=== PATIENT | female | born 1990 | race Caucasian/White ===

== ENCOUNTER 2020-07-23 11:14 | Inpatient (IN) ==
[2020-07-23] MEDS ORDERED: PENICILLIN G POTASSIUM 3 MU in DEXTROSE 5% 100 ML IV PRN (11:30)
[2020-07-23] MEDS ORDERED: OXYTOCIN 30 UNITS/500 ML BAG IV PRN ×2 (11:30→17:47)
[2020-07-23] MEDS ORDERED: PENICILLIN G POTASSIUM 6 MU in DEXTROSE 5% 250 ML IV STA (11:45)
[2020-07-23 11:58] LABS: Hematocrit (blood only) 37.2 % (37-47); Hemoglobin 12.9 g/dL (12.0-16.0); Mean Corpuscular Hemoglobin 32.3 pg (25-34); Mean Corpuscular Hgb Conc 34.7 g/dL (32-36); Mean Corpuscular Volume 93.2 fL (80-100); Mean Platelet Volume 10.3 fL (7.4-10.4); Platelet Count 430 K/uL (130-400); RDW Coefficient of Variation 12.7 % (11.5-14.5); RDW Standard Deviation 42.8 fL (36.4-46.3); Red Blood Count 3.99 M/uL (4.2-5.4); White Blood Count 20.17 K/uL (4.8-10.8)
[2020-07-23] MEDS: LACTATED RINGER'S 1,000 ML IV PRN ×2 (12:01→13:31)
[2020-07-23] MEDS ORDERED: ePHEDrine sulfate 50 MG/ML AMP ONE (12:07)
[2020-07-23] MEDS ORDERED: BUPIVACAINE 0.25% 30 ML VIAL ONE (12:07)
[2020-07-23] MEDS ORDERED: SODIUM CHLORIDE 0.9% INJ 10 ML VIAL ONE (12:07)
[2020-07-23] MEDS ORDERED: fentaNYL citrate 100 MCG/2 ML VIAL ONE (12:08)
[2020-07-23] MEDS ORDERED: fentaNYL 2MCG/ML ROPIVACAINE 1.25MG/ML 100 ML BAG EPI ONE (12:08)
--- NOTE | 2020-07-23 12:09 | History & Physical Report ---
Date of Service July 23, 2020 Assessment & Plan (1) Normal labor: Admission and Anticipated Discharge Date Admission Date: July 23, 2020 IUP at 40 weeks in active labor start PCN G prophylaxis now AROM when 2nd dose started epidural when requested anticipate vaginal . History of Present Illness Primary Care Provider: Natalie Aden PA-C Patient is a 30 yo white female who presents at 40+ weeks in active labor. (-) SPROM (-) bloody show. GBS(+) blood type O negative. Allergies Allergy/AdvReac Type Severity Reaction Status Date / Time lithium Allergy Mild dazed, Verified 07/22/20 11:08 confusion haloperidol Allergy unknown Verified 07/22/20 11:08 sertraline Allergy unknown Verified 07/22/20 11:08 tramadol Allergy unknown Verified 07/22/20 11:08 Home Medications Medication Instructions Recorded Confirmed Type prenat.vits,fiordaliza,[id number] 1 tab PO DAILY 12/04/19 07/22/20 History folic acid 1 mg tablet 4 mg PO DAILY #90 tab 12/12/19 07/22/20 Rx vitamin B complex PO 01/08/20 07/22/20 History levetiracetam 500 mg tablet 500 mg PO BID #180 tab 06/25/20 07/22/20 Rx Patient History Medical History (Updated 07/23/20 @ 12:11 by Jerrica Silva MD, FACOG) Hx of varicella Normal vaginal delivery Paranoid schizophrenia (Unknown) Suicide attempt (Unknown) Surgical History Tonsillectomy planned Social History Smoking Status: Current every day smoker packs per day: 0.5; Years Smoked: 12; Cigarettes Per Day: .5 PACK; Hx Alcohol Use: Yes Hx Substance Use: No Preferred Language: [place] Rican Communication Ability: Effective Beliefs That Will Affect Care: None marital status: marital status details: BERTIN Lott 29 Current Living Situation: Spouse Current Living Situation Comment: lives with FOB and children, 1 dog, 2 cats, does not change litter current occupational status: employed 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 @ [employer] Other Information That Helps Us Care for You: No Feels Safe at Home: Yes Safety Concerns: Feels Safe At This Time Assistive Devices: None Review of Systems All systems reviewed & are unremarkable except as noted in HPI & below Physical Exam Constitutional: WD/WN, vitals as above Respiratory: normal respiratory effort, lungs clear to auscultation Cardiovascular: RRR, no murmur, no edema Gastrointestinal (Abdomen): normal bowel sounds, soft, nontender, no hepatosplenomegaly Psychiatric: A+Ox3, euthymic affect Genitourinary: OB Exam Abdomen: + vertex, + estimated weight (7-8 pounds) and + regular contractions Manual OB Exam: + cervical dilation 5 cm, + cervical effacement 90% and + station -2 OB Exam Monitor Tracing: + external FHT monitor used, + external uterine monitor used, + category I and + normal FHT variability Results & Data ([facility]) Vital Signs (Past 12 Hours) Vital Signs Temp Pulse Resp BP 07/23/20 11:43 97.7 F 20 07/23/20 11:25 96 H 138/86 Coding Level of Care Code None Diagnoses Normal labor O80; Z37.9
[2020-07-23] MEDS ORDERED: NALOXONE HCL 1 MG in SODIUM CHLORIDE 0.9% 1000ML 1,000 ML IV PRN (12:32)
[2020-07-23] MEDS ORDERED: ONDANSETRON INJ 2 MG/ML 2 ML VIAL IV PRN (12:32)
[2020-07-23] MEDS ORDERED: fentaNYL 2MCG/ML ROPIVACAINE 1.25MG/ML 100 ML BAG EPI PRN (12:32)
[2020-07-23] MEDS ORDERED: diphenhydrAMINE 50 MG/ML VIAL IV PRN (12:32)
[2020-07-23] MEDS ORDERED: ePHEDrine sulfate 50 MG/ML AMP IV PRN (12:32)
[2020-07-23] MEDS ORDERED: NALOXONE HCL 0.4 MG/1 ML VIAL/CARP IV PRN (12:32)
--- NOTE | 2020-07-23 12:35 | Anesthesiology Consultation ---
Date of Service July 23, 2020 Assessment & Plan (1) Encounter for pre-operative examination: Chart Review Chart Review: Patient NOT seen in Pre Admission Testing and Acceptable Risk for Labor Epidural Consults Requested none History Height/Weight Height: 5 ft 7 in Weight: 83.461 kg Allergies Allergy/AdvReac Type Severity Reaction Status Date / Time lithium Allergy Mild dazed, Verified 07/22/20 11:08 confusion haloperidol Allergy unknown Verified 07/22/20 11:08 sertraline Allergy unknown Verified 07/22/20 11:08 tramadol Allergy unknown Verified 07/22/20 11:08 Medications Home Medications Medication Instructions Recorded Confirmed Last Taken prenat.vits,fiordaliza,rhq-egra-eyhza 1 tab PO DAILY 12/04/19 07/22/20 Unknown folic acid 1 mg tablet 4 mg PO DAILY #90 tab 12/12/19 07/22/20 Unknown vitamin B complex PO 01/08/20 07/22/20 Unknown levetiracetam 500 mg tablet 500 mg PO BID #180 tab 06/25/20 07/22/20 Unknown prenat.vits,fiordaliza,[id number]-[id number] 1 tab PO DAILY 07/23/20 07/23/20 07/21/20 08:00 [ Vitamin] Active Medications Generic Name Dose Route Start Last Admin Trade Name Freq PRN Reason Stop Dose Admin Lactated Ringer's 1,000 mls @ 125 mls/hr 07/23/20 11:30 07/23/20 12:01 Lr IV 07/25/20 11:29 999 mls/hr .Q8H PRN Administration L&D Protocol Protocol Past Medical History Medical History (Updated 07/23/20 @ 12:35 by Vj Denton MD) Hx of varicella Normal vaginal delivery Paranoid schizophrenia (Unknown) Suicide attempt (Unknown) Exercise / Class Metabolic Activity II 4-5 Yardwork/Stairs/Walk up hill Past Surgical History Surgical History Tonsillectomy planned Past Anesthesia History No Hx of Anesthesia Complications and No Family Hx of Anesthesia Complications History of PONV No Hx of PONV and No Hx of Motion Sickness Social History Smoking Status: Current every day smoker tobacco type: cigarettes Smoking cigarettes per day: .5 PACK Do You Dip or Chew Tobacco: No Hx Alcohol Use: Yes Hx Substance Use: No substance use type: does not use Physical Exam Vital Signs Last Vital Signs Temp 36.5 C 07/23/20 11:43 Pulse 86 07/23/20 12:56 Resp 20 07/23/20 11:43 BP 118/69 07/23/20 12:56 Pulse Ox 99 07/23/20 12:52 Testing Laboratory Results 07/23/20 11:42
[2020-07-23] MEDS ORDERED: SILVER NITR/POTASSIUM NITRATE APPLICATOR ONE ×2 (17:35→17:38)
[2020-07-23] MEDS ORDERED: bisacodyL 10 MG SUPP PR PRN (17:47)
[2020-07-23] MEDS ORDERED: BENZOCAINE 20% AER SPR 82.5 GM CAN EXT PRN (17:47)
[2020-07-23] MEDS ORDERED: DIPHTHERIA/TETANUS/PERTUSSIS 0.5 ML SYR/VIAL IM ONE (17:47)
[2020-07-23] MEDS ORDERED: ACETAMINOPHEN 325 MG TAB PO PRN (17:47)
[2020-07-23] MEDS ORDERED: HYDROCORTISONE ACETATE 25 MG SUPP PR PRN (17:47)
[2020-07-23] MEDS ORDERED: SUPERCREAM 0.870% 15 GM JAR EXT PRN (17:47)
[2020-07-23] MEDS ORDERED: oxyCODONE/ACETAMINOPHEN 5mg/325mg TAB PO PRN (17:47)
--- NOTE | 2020-07-23 18:01 | Delivery Summary ---
Vaginal Delivery Summary Date of Service July 23, 2020 Patient is a 30-year-old 3 para 2000 white female who presents at 40 weeks with an active labor. She was 5 cm upon arrival in labor and delivery membranes were intact. She received effective epidural analgesia. She received 2 doses of penicillin G for GBS prophylaxis. At this point she was fully dilated, and membranes were ruptured for small amount of clear fluid. She had the urge to push, and delivered a viable female infant over intact perineum. There was vigorous crying and the infant was moving all 4 limbs. After 1 minute the cord was clamped and cut. Gentle traction was placed on the cord to deliver the placenta, but the cord avulsed from the placenta. The placenta was in the cervix and was easily removed manually. The placenta was intact and the cord had a three-vessel cord. There were no perineal lacerations. There were 2 skin tags on the perineum that were removed with scissors. Bleeding at the excision sites was controlled with silver nitrate. Estimated blood loss was 200 cc. bleeding was controlled with dilute Pitocin. Mother and infant were doing well after delivery. Vaginal Delivery Summary [facility] Vaginal Delivery Charge Vaginal Delivery Codes: 48572 global code for the antepartum, delivery, and post- Delivery Type Details: [facility]
--- NOTE | 2020-07-23 18:15 | Anesthesia Procedure Note ---
Date of Service July 23, 2020 Anesthesia Post Epidural Note Vital Signs Vital Signs: Temp Pulse Resp BP Pulse Ox 36.6 C 76 20 112/70 96 07/23/20 15:15 07/23/20 18:00 07/23/20 16:30 07/23/20 18:00 07/23/20 17:42 Notes Mental Status: alert / awake / arousable and participated in evaluation Patient Amnestic to Procedure: Yes Nausea / Vomiting: adequately controlled Pain: adequately controlled Airway Patency, RR, SpO2: stable & adequate BP & HR: stable & adequate Hydration State: stable & adequate Anesthetic Complications: no major complications apparent and Pt Satisfied with anesthetic care Epidural: Removed without complications and With tip intact
[2020-07-23] MEDS: IBUPROFEN 600 MG TAB PO PRN (19:22)
[2020-07-23] MEDS: DOCUSATE SODIUM 100 MG CAP PO SCH (20:26)
[2020-07-23] MEDS: levETIRAcetam 500 MG TAB PO SCH (20:27)
[2020-07-24] MEDS: IBUPROFEN 600 MG TAB PO PRN ×2 (06:21→16:28)
[2020-07-24 06:38] LABS: Mean Corpuscular Hemoglobin 32.3 pg (25-34); Mean Corpuscular Hgb Conc 34.3 g/dL (32-36); Mean Corpuscular Volume 94.3 fL (80-100); Mean Platelet Volume 10.4 fL (7.4-10.4); Platelet Count 398 K/uL (130-400); RDW Coefficient of Variation 12.9 % (11.5-14.5); RDW Standard Deviation 44.3 fL (36.4-46.3); Red Blood Count 3.71 M/uL (4.2-5.4); White Blood Count 17.51 K/uL (4.8-10.8)
[2020-07-24] MEDS ORDERED: PRENATAL VITAMIN 1 TAB PO SCH (08:00)
--- NOTE | 2020-07-24 08:22 | Obstetrical Progress Note ---
Date of Service July 24, 2020 Assessment & Plan (1) Encounter for care and examination after delivery: satisfactory psotpartum course continue current care plan Subjective Ambulation: ambulating normally Voiding: no voiding problems Diet Tolerance:: regular diet Lochia:: Moderate Feeding Type:: breast feeding Review of Systems All systems reviewed & are unremarkable except as noted in HPI & below Physical Exam Constitutional WD/WN, vitals as above Psychiatric A+Ox3, euthymic affect Genitourinary OB Exam Abdomen: + fundal height Fundus: + firm and + relation to umbilicus (at U) Results & Data ([facility]) Vital Signs (Past 12 Hours) Vital Signs Temp Pulse Pulse Resp BP Pulse Ox 07/24/20 03:05 98.4 F 76 16 115/62 97 07/24/20 00:10 98.4 F 71 16 103/61 98 07/23/20 20:25 97.9 F 72 18 116/70 95
[2020-07-24] MEDS: DOCUSATE SODIUM 100 MG CAP PO SCH (08:41)
[2020-07-24] MEDS: levETIRAcetam 500 MG TAB PO SCH (08:41)
[2020-07-24] MEDS ORDERED: bisacodyL 5 MG TABEC PO SCH (20:00)
== END 2020-07-24 18:45 | disposition home or self-care (01) | DRG 807 ==
LOC: 4S1 11:14 → OPB 11:14 → 4S1 11:30 → 4S2 20:23

== ENCOUNTER 2022-06-15 08:44 | Inpatient (IN) ==
[2022-06-15] MEDS ORDERED: OXYTOCIN 30 UNITS/500 ML BAG IV PRN ×3 (12:52→22:48)
[2022-06-15] MEDS ORDERED: LIDOCAINE 1% LOCAL 20 ML VIAL INFIL PRN (12:52)
[2022-06-15] MEDS ORDERED: LACTATED RINGER'S 1,000 ML IV PRN (12:52)
[2022-06-15] MEDS ORDERED: PENICILLIN G POTASSIUM 6 MU in DEXTROSE 5% 250 ML IV STA (13:00)
--- NOTE | 2022-06-15 13:20 | History & Physical Report ---
Date of Service June 15, 2022 Assessment & Plan (1) Encounter for induction of labor: (2) Carrier of group B Streptococcus: (3) Need for rhogam due to Rh negative mother: Plan - Patient admitted to labor and delivery for initiation of medical induction of labor - Patient 4/60/-2 on 06/13/22, no Ness bulb placement - Patient currently 4/70/-[address] Nguyen on 06/15/22 - Patient is GBS+, will plan for 4 hours of PCN prior to delivery - Patient is Rh negative, will plan for Rhogam PP if baby is Rh positive - Patient w/o evidence of regular contractions, thus oxytocin augmentation of labor will be started per protocol - Once contractions are progressing, will consider ROM - Will anticipate epidural as contractions arise - Labs pending Admission and Anticipated Discharge Date Admission Date: June 15, 2022 History of Present Illness Chief Complaint: Induction Primary Care Provider: Gonzalo Ram DO Raquel is a 32 year old female currently at EGA 40 04/29 with DEVAN 06/14/22 by LMP who is presenting to L&D for induction of labor. Complications: Rh negative, GBS positive Reason for Induction/: Post-date Movement: Yes Fluid Loss/ROM: No Bloody show/discharge: No Contractions: Yes, irregular 20 - 30 minutes apart External FHT: Category 1, tracing reactive, good FHT variability (acels w/o dcels) Uterine Monitor: no regular contractions Last OB appointment: 06/13, regular care Labs: Blood Type: O- Antibody Screen: Negative Hg/Hct (today): Pending WBC/Plt (today): Pending Rubella: Immune RPR: Non-reactive Gonorrhea: Negative Chlamydia: Negative HIV: Negative HbSAg: Negative GBS: Positive ROS: - Denies fever, chills, sweats - Denies dyspnea or pleuritic pain - Denies chest pain, palpitations, or pressure - Denies breast pain - Denies dysuria - Denies headache or visual changes Allergies Allergy/AdvReac Type Severity Reaction Status Date / Time lithium Allergy Mild dazed, Verified 06/13/22 10:42 confusion haloperidol Allergy neck Verified 06/13/22 10:42 stiffness sertraline Allergy suicidal Verified 06/13/22 10:42 thoughts tramadol Allergy seizures Verified 06/13/22 10:42 Home Medications Medication Instructions Recorded Confirmed Type prenat.vits,fiordaliza,[id number]-[id number] 1 tab PO DAILY 10/28/21 06/15/22 History fluoxetine 10 mg capsule (Prozac) 10 mg PO DAILY 01/24/22 06/15/22 History Patient History Medical History Attention deficit hyperactivity disorder Bipolar disorder Depression with anxiety Drug overdose (~2010) GBS (group B Streptococcus carrier), +RV culture, currently Hx of varicella Normal vaginal delivery Paranoid schizophrenia (Unknown) Post depression Seizure disorder Suicide attempt (Unknown) Surgical History History of ear surgery Tonsillectomy planned Family History Grandmother (Maternal) Colorectal cancer Grandmother (Maternal) Breast cancer Grandfather (Paternal) Lung cancer Myocardial infarction Grandfather (Paternal) No problems noted. 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: No Beliefs That Will Affect Care: None marital status: marital status details: Kt Lott (31) [phone] Current Living Situation: Spouse and Family Current Living Situation Comment: lives with spouse and children, 1 dog, 2 cats-daughter changing litter current occupational status: employed 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 No acute distress. Cardiac: Regular rate and rhythm, no murmurs/rubs/gallops. Respiratory: Clear to auscultation bilaterally a/p, no wheezes/rales/rhonchi. No increased work of breathing. Symmetrical chest rise. No respiratory distress. Abdomen: Gravid; reactive FHTs; Position: Vertex by Nigel Maneuver Pelvic: 4/[address]/-[address] Nguyen Lower Extremities: No lower extremity edema or swelling. No deep calf pain. Fiordaliza's negative bilaterally. Resident Activity Tracking Resident Involvement: Resident Care Provided Care Provided: OB Delivery
[2022-06-15 13:40] LABS: Hematocrit (blood only) 32.6 % (37.0-47.0); Hemoglobin 11.1 g/dl (12.0-16.0); Mean Corpuscular Hemoglobin 29.3 pg (25.0-34.0); Mean Platelet Volume 10.1 fL (9.4-12.4); Platelet Count 513 K/uL (130-400); RDW Coefficient of Variation 13.4 % (11.5-14.5); Red Blood Count 3.79 M/uL (4.20-5.40); White Blood Count 14.94 K/ul (4.8-10.8)
[2022-06-15] MEDS ORDERED: PENICILLIN G POTASSIUM 3 MU in DEXTROSE 5% 100 ML IV PRN (15:52)
[2022-06-15] MEDS ORDERED: ePHEDrine sulfate 50 MG/ML AMP ONE (16:08)
[2022-06-15] MEDS ORDERED: SODIUM CHLORIDE 0.9% INJ 10 ML VIAL ONE (16:08)
[2022-06-15] MEDS ORDERED: LIDOCAINE 2%/EPINEPHRINE 1:200,000 20 ML SDV ONE (16:08)
[2022-06-15] MEDS ORDERED: fentaNYL citrate 100 MCG/2 ML VIAL ONE (16:08)
[2022-06-15] MEDS ORDERED: BUPIVACAINE 0.25% 30 ML VIAL ONE (16:08)
[2022-06-15] MEDS ORDERED: fentaNYL 2MCG/ML ROPIVACAINE 1.25MG/ML 100 ML BAG EPI ONE (16:09)
--- NOTE | 2022-06-15 16:28 | Anesthesiology Consultation ---
Date of Service June 15, 2022 Assessment & Plan Chart Review Chart Review: Acceptable Risk for Labor Epidural History Height/Weight Height: 5 ft 7 in Weight: 83.461 kg Allergies Allergy/AdvReac Type Severity Reaction Status Date / Time lithium Allergy Mild dazed, Verified 06/13/22 10:42 confusion haloperidol Allergy neck Verified 06/13/22 10:42 stiffness sertraline Allergy suicidal Verified 06/13/22 10:42 thoughts tramadol Allergy seizures Verified 06/13/22 10:42 Medications Home Medications Medication Instructions Recorded Confirmed Last Taken prenat.vits,fiordaliza,[id number]-[id number]-[id number] 1 tab PO DAILY 10/28/21 06/15/22 06/14/22 fluoxetine 10 mg capsule (Prozac) 10 mg PO DAILY 01/24/22 06/15/22 06/14/22 Active Medications Generic Name Dose Route Start Last Admin Trade Name Freq PRN Reason Stop Dose Admin Lactated Ringer's 1,000 mls @ 125 mls/hr 06/15/22 12:52 06/15/22 16:05 Lr IV 06/17/22 12:51 999 mls/hr .Q8H PRN Infusion L&D Protocol Protocol Oxytocin 30 units in 500 mls @ 5 mls/hr 06/15/22 12:52 06/15/22 16:05 Pitocin IV 06/17/22 12:51 0.3 units/hr .Q24H PRN 5 mls/hr Labor Induction/Augmentation Titration Protocol 0.3 UNITS/HR Past Medical History Medical History Attention deficit hyperactivity disorder Bipolar disorder Depression with anxiety Drug overdose (~2010) GBS (group B Streptococcus carrier), +RV culture, currently Hx of varicella Normal vaginal delivery Paranoid schizophrenia (Unknown) Post depression Seizure disorder Suicide attempt (Unknown) Past Family History Family History Grandmother (Maternal) Colorectal cancer Grandmother (Maternal) Breast cancer Grandfather (Paternal) Lung cancer Myocardial infarction Grandfather (Paternal) No problems noted. Grandmother (Paternal) Breast cancer Denies family history of Ovarian cancer Prostate cancer Past Surgical History Surgical History History of ear surgery Tonsillectomy planned Social History Smoking Status: Current every day smoker tobacco type: cigarettes Smoking cigarettes per day: .5 - 1 PACK Do You Dip or Chew Tobacco: No Hx Alcohol Use: No Hx Substance Use: No substance use type: does not use Physical Exam Vital Signs Last Vital Signs Temp 37.0 C 06/15/22 14:05 Pulse 89 06/15/22 16:15 Resp 18 06/15/22 14:05 BP 117/73 06/15/22 16:15 Testing Laboratory Results 06/15/22 13:11
[2022-06-15] MEDS ORDERED: NALOXONE HCL 1 MG in SODIUM CHLORIDE 0.9% 1000ML 1,000 ML IV PRN (16:44)
[2022-06-15] MEDS ORDERED: NALOXONE HCL 0.4 MG/1 ML VIAL/CARP IV PRN (16:44)
[2022-06-15] MEDS ORDERED: ePHEDrine sulfate 50 MG/ML AMP IV PRN (16:44)
[2022-06-15] MEDS ORDERED: fentaNYL 2MCG/ML ROPIVACAINE 1.25MG/ML 100 ML BAG EPI PRN (16:44)
[2022-06-15] MEDS ORDERED: ONDANSETRON INJ 2 MG/ML 2 ML VIAL IV PRN (16:44)
--- NOTE | 2022-06-15 19:59 | Labor Progress Brief Note ---
Date of Service June 15, 2022 Subjective Comfortable with epidural. FHT Cat 1 [place] Q 2 SVE 5/90/-3. Membranes palpable, I could also palpate hand against head through membranes. Will plan to continue pitocin for now, and recheck as labor continues in hopes of being able to safely perform AROM. Assessment & Plan Admission and Anticipated Discharge Date Admission Date: June 15, 2022 Results & Data ([facility]) Vital Signs (Past 12 Hours) Vital Signs Temp Pulse Resp BP Pulse Ox 06/15/22 19:15 36.9 C 18 06/15/22 18:39 18 06/15/22 17:40 37.1 C 18 06/15/22 19:56 80 97 06/15/22 19:53 77 112/71 06/15/22 19:51 92 06/15/22 19:51 98 H 06/15/22 19:51 98 H 91 06/15/22 19:46 89 100 06/15/22 19:41 86 98 06/15/22 19:38 83 104/63 06/15/22 19:36 82 99 06/15/22 19:30 18 06/15/22 19:30 18 06/15/22 19:31 81 99 06/15/22 19:26 85 98 06/15/22 19:23 87 113/67 06/15/22 19:21 87 99 06/15/22 19:16 88 98 06/15/22 19:11 83 98 06/15/22 19:09 78 111/59 L 06/15/22 19:06 89 98 06/15/22 19:01 82 99 06/15/22 18:56 86 100 06/15/22 18:54 86 98/56 L 06/15/22 18:51 85 99 06/15/22 18:46 83 99 06/15/22 18:41 87 99 06/15/22 18:38 83 95/58 L 06/15/22 18:36 86 100 06/15/22 18:31 87 100 06/15/22 18:26 98 H 100 06/15/22 18:24 85 106/66 06/15/22 18:21 84 99 06/15/22 18:16 85 98 06/15/22 18:11 82 100 06/15/22 18:10 85 101/59 L 06/15/22 18:06 81 100 06/15/22 18:01 83 100 06/15/22 17:56 77 100 06/15/22 17:54 76 118/68 06/15/22 17:51 83 100 06/15/22 17:46 73 99 06/15/22 17:41 84 100 06/15/22 17:36 100 06/15/22 17:36 84 06/15/22 17:36 86 123/77 06/15/22 17:32 85 88 L 06/15/22 17:31 85 97 06/15/22 17:29 87 120/73 06/15/22 17:26 91 H 96 06/15/22 17:24 79 18 115/70 06/15/22 17:21 81 98 06/15/22 17:20 83 121/71 06/15/22 17:16 81 99 06/15/22 17:14 83 114/68 06/15/22 17:11 80 98 06/15/22 17:10 81 18 117/76 06/15/22 17:06 82 99 06/15/22 17:05 78 116/75 06/15/22 17:01 88 98 06/15/22 17:00 88 92 06/15/22 16:59 81 122/81 06/15/22 16:56 87 18 99 06/15/22 16:53 84 114/73 06/15/22 16:51 91 H 110/70 98 06/15/22 16:49 98 H 18 114/79 06/15/22 16:47 82 111/66 06/15/22 16:46 86 97 06/15/22 16:45 86 18 116/70 06/15/22 16:43 78 115/71 06/15/22 16:41 91 H 125/76 97 06/15/22 16:39 92 H 131/78 06/15/22 16:36 100 H 98 06/15/22 16:37 103 H 131/79 06/15/22 16:35 116 H 132/81 06/15/22 16:33 114 H 129/81 06/15/22 16:31 119 H 98 06/15/22 16:15 37.1 C 89 18 117/73 06/15/22 12:47 36.9 C 18 06/15/22 14:09 89 107/62 06/15/22 14:05 37.0 C 89 18 107/62 Coding Level of Care Code None Diagnoses
--- NOTE | 2022-06-15 20:55 | Labor Progress Brief Note ---
Date of Service June 15, 2022 Subjective Comfortable with epidural. FHT Cat 1 [place] Q 2 SVE 5/90/-2 AROM clear fluid. Continue IOL. Assessment & Plan Admission and Anticipated Discharge Date Admission Date: June 15, 2022 Results & Data ([facility]) Vital Signs (Past 12 Hours) Vital Signs Temp Pulse Resp BP Pulse Ox 06/15/22 19:15 36.9 C 18 06/15/22 18:39 18 06/15/22 17:40 37.1 C 18 06/15/22 20:51 97 H 94 06/15/22 20:46 84 97 06/15/22 20:30 20 06/15/22 20:30 20 06/15/22 20:41 92 H 97 06/15/22 20:39 80 110/59 L 06/15/22 20:36 84 97 06/15/22 20:31 83 96 06/15/22 20:26 82 97 06/15/22 20:23 82 111/61 06/15/22 20:21 80 98 06/15/22 20:16 79 96 06/15/22 20:11 80 97 06/15/22 20:08 85 107/58 L 06/15/22 20:06 83 98 06/15/22 20:01 81 97 06/15/22 20:00 18 06/15/22 20:00 18 06/15/22 19:56 80 97 06/15/22 19:53 77 112/71 06/15/22 19:51 92 06/15/22 19:51 98 H 06/15/22 19:51 98 H 91 06/15/22 19:46 89 100 06/15/22 19:41 86 98 06/15/22 19:38 83 104/63 06/15/22 19:36 82 99 06/15/22 19:30 18 06/15/22 19:30 18 06/15/22 19:31 81 99 06/15/22 19:26 85 98 06/15/22 19:23 87 113/67 06/15/22 19:21 87 99 06/15/22 19:16 88 98 06/15/22 19:11 83 98 06/15/22 19:09 78 111/59 L 06/15/22 19:06 89 98 06/15/22 19:01 82 99 06/15/22 18:56 86 100 06/15/22 18:54 86 98/56 L 06/15/22 18:51 85 99 06/15/22 18:46 83 99 06/15/22 18:41 87 99 06/15/22 18:38 83 95/58 L 06/15/22 18:36 86 100 06/15/22 18:31 87 100 06/15/22 18:26 98 H 100 06/15/22 18:24 85 106/66 06/15/22 18:21 84 99 06/15/22 18:16 85 98 06/15/22 18:11 82 100 06/15/22 18:10 85 101/59 L 06/15/22 18:06 81 100 06/15/22 18:01 83 100 06/15/22 17:56 77 100 06/15/22 17:54 76 118/68 06/15/22 17:51 83 100 06/15/22 17:46 73 99 06/15/22 17:41 84 100 06/15/22 17:36 100 06/15/22 17:36 84 06/15/22 17:36 86 123/77 06/15/22 17:32 85 88 L 06/15/22 17:31 85 97 06/15/22 17:29 87 120/73 06/15/22 17:26 91 H 96 06/15/22 17:24 79 18 115/70 06/15/22 17:21 81 98 06/15/22 17:20 83 121/71 06/15/22 17:16 81 99 06/15/22 17:14 83 114/68 06/15/22 17:11 80 98 06/15/22 17:10 81 18 117/76 06/15/22 17:06 82 99 06/15/22 17:05 78 116/75 06/15/22 17:01 88 98 06/15/22 17:00 88 92 06/15/22 16:59 81 122/81 06/15/22 16:56 87 18 99 06/15/22 16:53 84 114/73 06/15/22 16:51 91 H 110/70 98 06/15/22 16:49 98 H 18 114/79 06/15/22 16:47 82 111/66 06/15/22 16:46 86 97 02/23/23 16:45 86 18 116/70 06/15/22 16:43 78 115/71 06/15/22 16:41 91 H 125/76 97 06/15/22 16:39 92 H 131/78 06/15/22 16:36 100 H 98 06/15/22 16:37 103 H 131/79 06/15/22 16:35 116 H 132/81 06/15/22 16:33 114 H 129/81 06/15/22 16:31 119 H 98 06/15/22 16:15 37.1 C 89 18 117/73 06/15/22 12:47 36.9 C 18 06/15/22 14:09 89 107/62 06/15/22 14:05 37.0 C 89 18 107/62 Coding Level of Care Code None Diagnoses
--- NOTE | 2022-06-15 22:42 | Delivery Summary ---
Vaginal Delivery Summary Date of Service June 15, 2022 Vaginal Delivery Summary [facility] Vaginal Delivery Summary: Pre-delivery diagnoses: 32yo @ 40 04/29, GBS+, Rh negative Post-delivery diagnoses: same Procedure: spontaneous vaginal delivery Surgeon: Kristy Nguyen DO Complications: none Findings: Viable female . Apgars: 8/9. Weight pending, please see nursery records. Estimated blood loss: Description of delivery: I was called to delivery as the baby's head was coming out. Natalie Barron RN reported to me that the baby delivered with a single push, nuchal x 1 delivered through. I entered the room about 10 seconds after delivery, baby was crying and vigorous and was placed on mother's abdomen. Delayed cord clamping was employed, and the cord was doubly clamped and cut. Cord blood was obtained. The placenta was delivered spontaneously intact with a 3-vessel cord. The uterus and vagina were swept of clots and debris. IV pitocin was given. The uterus became firm. The cervix, vagina, and perineum were inspected and no lacerations were noted. Excellent hemostasis was observed. The mother and baby are recovering in stable and good condition in the room. Sponge and instrument counts were correct x 2. Kristy Nguyen DO [facility] Vaginal Delivery Charge Vaginal Delivery Codes: 39593 global code for the antepartum, delivery, and post- Delivery Type Details: [facility]
[2022-06-15] MEDS ORDERED: ACETAMINOPHEN 325 MG TAB PO PRN (22:48)
[2022-06-15] MEDS ORDERED: oxyCODONE/ACETAMINOPHEN 5mg/325mg TAB PO PRN (22:48)
[2022-06-15] MEDS ORDERED: BENZOCAINE 20% AER SPR 82.5 GM CAN EXT PRN (22:48)
[2022-06-15] MEDS ORDERED: HYDROCORTISONE ACETATE 25 MG SUPP PR PRN (22:48)
[2022-06-15] MEDS ORDERED: DIPHTHERIA/TETANUS/PERTUSSIS 0.5mL SYR/VIAL (Age 7+yrs) IM ONE (22:48)
[2022-06-15] MEDS: IBUPROFEN 600 MG TAB PO PRN (23:48)
[2022-06-16] MEDS: IBUPROFEN 600 MG TAB PO PRN ×2 (06:11→16:43)
[2022-06-16 07:17] LABS: Hematocrit (blood only) 32.1 % (37.0-47.0); Hemoglobin 10.7 g/dl (12.0-16.0)
--- NOTE | 2022-06-16 07:44 | Obstetrical Progress Note ---
Date of Service June 16, 2022 Assessment & Plan (1) care following vaginal delivery: PPD#1 doing well. Would like DC home, reviewed instructions. 6w followup PP. Subjective Ambulation: ambulating normally Voiding: no voiding problems Diet Tolerance:: regular diet Lochia:: Moderate Review of Systems All systems reviewed & are unremarkable except as noted in HPI & below Physical Exam Constitutional WD/WN, vitals as above no acute distress Respiratory normal respiratory effort Cardiovascular Rate/Rhythm: regular rate and regular rhythm Gastrointestinal (Abdomen) Inspection/Auscultation: abdomen normal to inspection; abdomen not distended Percussion/Palpation: abdomen soft Genitourinary OB Exam Abdomen: + fundal height Fundus: + firm; not tender Results & Data ([facility]) Vital Signs (Past 12 Hours) Vital Signs Temp Pulse Pulse Resp BP BP Pulse Ox 06/16/22 06:00 36.7 C 70 17 114/74 99 06/16/22 01:26 36.7 C 66 19 112/68 98 06/16/22 00:45 36.6 C 18 06/15/22 23:15 18 06/16/22 00:15 18 06/15/22 23:45 18 06/15/22 23:30 18 06/15/22 23:00 20 06/15/22 22:45 20 06/16/22 00:45 76 115/70 06/16/22 00:30 81 113/62 06/16/22 00:15 77 113/64 06/16/22 00:00 74 107/63 06/15/22 23:45 75 118/67 06/15/22 23:30 78 116/64 06/15/22 23:15 74 117/66 06/15/22 23:00 78 116/61 06/15/22 22:45 77 113/58 L 06/15/22 22:31 98 06/15/22 22:31 88 06/15/22 22:31 76 81 L 06/15/22 22:26 98 H 96 06/15/22 22:21 94 H 99 06/15/22 22:17 98 H 85 L 06/15/22 22:16 86 99 06/15/22 22:12 84 86 L 06/15/22 22:11 86 94 06/15/22 22:09 81 100/57 L 06/15/22 22:06 85 97 02/23/23 22:01 98 06/15/22 22:01 83 06/15/22 22:01 87 93 06/15/22 21:56 88 96 06/15/22 21:53 95 H 120/64 06/15/22 21:51 98 H 97 06/15/22 21:46 92 H 97 06/15/22 21:41 97 H 97 06/15/22 21:39 92 H 119/59 L 06/15/22 21:36 91 H 97 06/15/22 21:35 36.9 C 06/15/22 21:31 92 H 98 06/15/22 21:30 18 06/15/22 21:30 18 06/15/22 21:26 89 98 06/15/22 21:23 86 120/70 06/15/22 21:21 100 H 98 06/15/22 21:16 95 H 98 06/15/22 21:11 86 99 06/15/22 21:09 84 115/74 06/15/22 21:06 86 98 06/15/22 21:01 86 98 06/15/22 21:00 20 06/15/22 21:00 20 06/15/22 20:56 81 99 06/15/22 20:55 82 132/75 06/15/22 20:51 97 H 94 06/15/22 20:46 84 97 06/15/22 20:30 20 06/15/22 20:30 20 06/15/22 20:41 92 H 97 06/15/22 20:39 80 110/59 L 06/15/22 20:36 84 97 06/15/22 20:31 83 96 06/15/22 20:26 82 97 06/15/22 20:23 82 111/61 06/15/22 20:21 80 98 06/15/22 20:16 79 96 06/15/22 20:11 80 97 06/15/22 20:08 85 107/58 L 06/15/22 20:06 83 98 06/15/22 20:01 81 97 06/15/22 20:00 18 06/15/22 20:00 18 06/15/22 19:56 80 97 06/15/22 19:53 77 112/71 06/15/22 19:51 92 06/15/22 19:51 98 H 06/15/22 19:51 98 H 91 06/15/22 19:46 89 100 O2 Del Method 06/16/22 06:00 Room Air 06/16/22 01:26 Room Air 06/16/22 00:45 06/15/22 23:15 06/16/22 00:15 06/15/22 23:45 06/15/22 23:30 06/15/22 23:00 06/15/22 22:45 06/16/22 00:45 06/16/22 00:30 06/16/22 00:15 06/16/22 00:00 06/15/22 23:45 06/15/22 23:30 06/15/22 23:15 06/15/22 23:00 06/15/22 22:45 06/15/22 22:31 06/15/22 22:31 06/15/22 22:31 06/15/22 22:26 06/15/22 22:21 06/15/22 22:17 06/15/22 22:16 06/15/22 22:12 06/15/22 22:11 06/15/22 22:09 06/15/22 22:06 06/15/22 22:01 06/15/22 22:01 06/15/22 22:01 06/15/22 21:56 06/15/22 21:53 06/15/22 21:51 06/15/22 21:46 06/15/22 21:41 06/15/22 21:39 06/15/22 21:36 06/15/22 21:35 06/15/22 21:31 06/15/22 21:30 06/15/22 21:30 06/15/22 21:26 06/15/22 21:23 06/15/22 21:21 06/15/22 21:16 06/15/22 21:11 06/15/22 21:09 06/15/22 21:06 06/15/22 21:01 06/15/22 21:00 06/15/22 21:00 06/15/22 20:56 06/15/22 20:55 06/15/22 20:51 06/15/22 20:46 06/15/22 20:30 06/15/22 20:30 06/15/22 20:41 06/15/22 20:39 06/15/22 20:36 06/15/22 20:31 06/15/22 20:26 06/15/22 20:23 06/15/22 20:21 06/15/22 20:16 06/15/22 20:11 06/15/22 20:08 06/15/22 20:06 06/15/22 20:01 06/15/22 20:00 06/15/22 20:00 06/15/22 19:56 06/15/22 19:53 06/15/22 19:51 06/15/22 19:51 06/15/22 19:51 06/15/22 19:46
--- NOTE | 2022-06-16 07:44 | Obstetrical Progress Note ---
Date of Service June 16, 2022 Assessment & Plan (1) care following vaginal delivery: (2) Carrier of group B Streptococcus: (3) Need for rhogam due to Rh negative mother: Plan - Overall, feeling well and eating well today - Infant feeding going well without concern - Urinating and passing gas appropriately - Ambulating well in room - Pain controlled w/ Ibuprofen - Hgb 10.7 on 06/16 - Vitals stable and wnl - Routine PP care progressing well - Anticipate discharge @ 24-48 hours PP - Rh negative mother, 's labs are pending - Patient wants to discharge to home today (delivered at 10 PM 06/15) - Recommending f/u outpatient in 6 weeks Admission and Anticipated Discharge Date Admission Date: June 15, 2022 Supervising Physician Co-Signing Physician Notes Resident Physician Supervision Note: I interviewed and examined the patient. Discussed with Dr. Fitzpatrick and agree with findings and plan as documented in the note. Any exceptions or clarifications are listed here: PPD#1 desires DC home. Doing well. DC instructions. Documented By: Kristy Nguyen, DO Subjective Patient is a 32F who is PPD #1 following delivery at 40 1/7. She reports feeling well overall this morning. - Ambulation - well throughout room - Voiding/Ness - independent voids, no dysuria or pressure - Gas/Stool - passing gas, no bowel movement - Diet - regular, no nausea or emesis - Lochia - diminishing, light amount - Feeding Type - bottle/formula feeding - Pain Level - 4/10, controlled with Ibuprofen Review of Systems - Denies fever, chills, sweats - Denies shortness of breath, difficulty breathing, chest pain, palpitations, chest pressure. - Denies breast pain. - Denies dysuria. - Denies headache or changes in vision. Physical Exam Physical Exam: General: Alert, oriented. No acute distress. Cardiac: RRR, normal S1/S2, no murmurs/rubs/gallops. Respiratory: Non-labored, CTAB, no wheezes/rales/rhonchi. Symmetric chest rise. Abdomen: Soft, nontender, nondistended. Bowel sounds present. Uterus: Uterine fundus firm, palpable 2 cm below umbilicus. Lower Extremities: No lower extremity edema or swelling. No deep calf pain. Fiordaliza's negative bilaterally. Results & Data ([facility]) Vital Signs (Past 12 Hours) Vital Signs Temp Pulse Pulse Resp BP BP Pulse Ox 06/16/22 06:00 36.7 C 70 17 114/74 99 06/16/22 01:26 36.7 C 66 19 112/68 98 06/16/22 00:45 36.6 C 18 06/15/22 23:15 18 06/16/22 00:15 18 06/15/22 23:45 18 06/15/22 23:30 18 06/15/22 23:00 20 06/15/22 22:45 20 06/16/22 00:45 76 115/70 06/16/22 00:30 81 113/62 06/16/22 00:15 77 113/64 06/16/22 00:00 74 107/63 06/15/22 23:45 75 118/67 06/15/22 23:30 78 116/64 06/15/22 23:15 74 117/66 06/15/22 23:00 78 116/61 06/15/22 22:45 77 113/58 L 06/15/22 22:31 98 06/15/22 22:31 88 06/15/22 22:31 76 81 L 06/15/22 22:26 98 H 96 06/15/22 22:21 94 H 99 06/15/22 22:17 98 H 85 L 06/15/22 22:16 86 99 06/15/22 22:12 84 86 L 06/15/22 22:11 86 94 06/15/22 22:09 81 100/57 L 06/15/22 22:06 85 97 06/15/22 22:01 98 06/15/22 22:01 83 06/15/22 22:01 87 93 06/15/22 21:56 88 96 06/15/22 21:53 95 H 120/64 06/15/22 21:51 98 H 97 06/15/22 21:46 92 H 97 06/15/22 21:41 97 H 97 06/15/22 21:39 92 H 119/59 L 06/15/22 21:36 91 H 97 06/15/22 21:35 36.9 C 06/15/22 21:31 92 H 98 06/15/22 21:30 18 06/15/22 21:30 18 06/15/22 21:26 89 98 06/15/22 21:23 86 120/70 06/15/22 21:21 100 H 98 06/15/22 21:16 95 H 98 06/15/22 21:11 86 99 06/15/22 21:09 84 115/74 06/15/22 21:06 86 98 06/15/22 21:01 86 98 06/15/22 21:00 20 06/15/22 21:00 20 06/15/22 20:56 81 99 06/15/22 20:55 82 132/75 06/15/22 20:51 97 H 94 06/15/22 20:46 84 97 06/15/22 20:30 20 06/15/22 20:30 20 06/15/22 20:41 92 H 97 06/15/22 20:39 80 110/59 L 06/15/22 20:36 84 97 06/15/22 20:31 83 96 06/15/22 20:26 82 97 06/15/22 20:23 82 111/61 06/15/22 20:21 80 98 06/15/22 20:16 79 96 06/15/22 20:11 80 97 06/15/22 20:08 85 107/58 L 06/15/22 20:06 83 98 06/15/22 20:01 81 97 06/15/22 20:00 18 06/15/22 20:00 18 06/15/22 19:56 80 97 06/15/22 19:53 77 112/71 06/15/22 19:51 92 06/15/22 19:51 98 H 06/15/22 19:51 98 H 91 06/15/22 19:46 89 100 O2 Del Method 06/16/22 06:00 Room Air 06/16/22 01:26 Room Air 06/16/22 00:45 06/15/22 23:15 06/16/22 00:15 06/15/22 23:45 06/15/22 23:30 06/15/22 23:00 06/15/22 22:45 06/16/22 00:45 06/16/22 00:30 06/16/22 00:15 06/16/22 00:00 06/15/22 23:45 06/15/22 23:30 06/15/22 23:15 06/15/22 23:00 06/15/22 22:45 06/15/22 22:31 06/15/22 22:31 06/15/22 22:31 06/15/22 22:26 06/15/22 22:21 06/15/22 22:17 06/15/22 22:16 06/15/22 22:12 06/15/22 22:11 06/15/22 22:09 06/15/22 22:06 06/15/22 22:01 06/15/22 22:01 06/15/22 22:01 06/15/22 21:56 06/15/22 21:53 06/15/22 21:51 06/15/22 21:46 06/15/22 21:41 06/15/22 21:39 06/15/22 21:36 06/15/22 21:35 06/15/22 21:31 06/15/22 21:30 06/15/22 21:30 06/15/22 21:26 06/15/22 21:23 06/15/22 21:21 06/15/22 21:16 06/15/22 21:11 06/15/22 21:09 06/15/22 21:06 06/15/22 21:01 06/15/22 21:00 06/15/22 21:00 06/15/22 20:56 06/15/22 20:55 06/15/22 20:51 06/15/22 20:46 06/15/22 20:30 06/15/22 20:30 06/15/22 20:41 06/15/22 20:39 06/15/22 20:36 06/15/22 20:31 06/15/22 20:26 06/15/22 20:23 06/15/22 20:21 06/15/22 20:16 06/15/22 20:11 06/15/22 20:08 06/15/22 20:06 06/15/22 20:01 06/15/22 20:00 06/15/22 20:00 06/15/22 19:56 06/15/22 19:53 06/15/22 19:51 06/15/22 19:51 06/15/22 19:51 06/15/22 19:46 Resident Activity Tracking Resident Involvement: Resident Care Provided Care Provided: OB Delivery
[2022-06-16] MEDS ORDERED: PRENATAL VITAMIN 1 TAB PO SCH (08:00)
[2022-06-16] MEDS: DOCUSATE SODIUM 100 MG CAP PO SCH ×2 (08:14→20:59)
[2022-06-16] MEDS ORDERED: FLUoxetine HCL 10 MG CAP PO SCH (09:00)
[2022-06-16] MEDS ORDERED: FLUoxetine HCL 20 MG CAP PO SCH (09:00)
--- NOTE | 2022-06-16 09:14 | Anesthesia Procedure Note ---
Date of Service June 16, 2022 Anesthesia Post Epidural Note Vital Signs Vital Signs: Temp Pulse Resp BP Pulse Ox O2 Del Method 36.7 C 70 18 114/72 97 Room Air 06/16/22 08:10 06/16/22 08:10 06/16/22 08:10 06/16/22 08:10 06/16/22 08:10 06/16/22 08:10 Pain Intensity Lower Back: Pain Intensity: 0 Abdomen: Pain Intensity: 6 Notes Mental Status: alert / awake / arousable and participated in evaluation Patient Amnestic to Procedure: No Nausea / Vomiting: adequately controlled Pain: adequately controlled Airway Patency, RR, SpO2: stable & adequate BP & HR: stable & adequate Hydration State: stable & adequate Neuraxial Anesthesia: was administered and sensory block resolved Anesthetic Complications: no major complications apparent and Pt Satisfied with anesthetic care Epidural: Removed without complications and With tip intact
[2022-06-16] MEDS ORDERED: bisacodyL 5 MG TABEC PO SCH (20:00)
[2022-06-17] MEDS ORDERED: bisacodyL 10 MG SUPP PR PRN
== END 2022-06-17 00:40 | disposition home or self-care (01) | DRG 807 ==
LOC: 4S1 12:40 → 4E2 06-16 01:17